=== PATIENT | male | born 1935 | race Two or more races ===

== ENCOUNTER 2024-10-04 03:10 | Inpatient (IN) | payer OTHER ==
[~2024-10-04] VITALS: Ht 172.7 cm; Wt 58.9 kg
[2024-10-04 03:36] LABS: Basophils # (auto) 0.1 10 ^3/uL (0-0.2); Basophils % (auto) 1.2 % (0.0-2.0); Eosinophils # (auto) 0.1 10 ^3/uL (0-0.8); Eosinophils % (auto) 1.1 % (0.0-7.0); Hematocrit 39.5 % (41.0-53.0); Hemoglobin 13.3 g/dL (13.5-17.5); Lymphocytes # (auto) 1.1 10 ^3/uL (0.4-5.4); Lymphocytes % (auto) 17.4 % (10.0-50.0); Mean Corpuscular Hemoglobin 30.9 pg (28.0-32.0); Mean Corpuscular Hgb Conc. 33.6 g/dL (32.0-36.0); Mean Corpuscular Volume 91.7 fL (80.0-100.0); Monocytes # (auto) 0.4 10 ^3/uL (0-1.3); Monocytes % (auto) 6.1 % (0.0-12.0); Neutrophils # (auto) 4.6 10 ^3/uL (1.6-8.6); Neutrophils % (auto) 74.2 % (37.0-80.0); Nucleated Red Blood Cells % 0.1 %; Platelet Count (auto) 201 10^3/uL (140-450); Red Blood Cells 4.31 10^6/uL (4.5-5.90); Red Cell Distribution Width 15.4 % (11.8-14.3); White Blood Cell 6.2 10^3/uL (4.4-10.8)
--- NOTE | 2024-10-04 03:38 | ED.PDOC ---
History of Present Illness HPI Comments 89 y/o M is BIBA from home for c/o generalized weakness and bodyaches. Patient is a poor historian and reports symptoms ongoing for the past several months with no improvement. 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 Denies any current chest pain, shortness of breath, fever, chills, urinary symptoms, or further associated symptoms. Chief Complaint: Body Pain Time Seen by MD: 03:10 Reviewed Notes: Nurses Notes, Research Assoc Notes, Medications, Allergies Allergies: Coded Allergies: NO KNOWN ALLERGIES (Unverified , 10/04/24) Information Source: Patient, Emergency Med Personnel Mode of Arrival: EMS Severity: Moderate Timing: Days Duration: Since onset Prehospital treatment: 12 Lead EKG, Accucheck, Trash Collector Past Medical History PAST MEDICAL HISTORY: Dementia, High Lipids, ND (STEMI), Thyroid (hypothryoidism ) Past Medical History (Other): chronic pain syndrome Surgical History: Denies all surgeries Social History Smoker: Non-Smoker Alcohol: Denies ETOH Use Drugs: Denies Drug Use Lives In: Home All Other Systems: Reviewed and Negative (Comprehensive systems review obtained and negative except for what is stated in the HPI.) Physical Exam General Appearance: No Apparent Distress, Normal HEENT: Normal ENT Inspection, Pharynx Normal, TMs Normal Neck: Full Range of Motion, Non-Tender, Normal, Normal Inspection Respiratory: Chest Non-Tender, Lungs Clear, No Accessory Muscle Use, No Respiratory Distress, Normal Breath Sounds Cardiovascular: No Edema, No JVD, No Murmur, No Gallop, Normal Peripheral Pulses, Regular Rate/Rhythm Breast Exam: Deferred Gastrointestinal: No Organomegaly, Non Tender, No Pulsatile Mass, Normal Bowel Sounds, Soft Genitalia: Deferred Pelvic: Deferred Rectal: Deferred Extremities: No calf tenderness, Normal capillary refill, Normal inspection, Normal range of motion, Non-tender, No pedal edema Musculoskeletal : Apperance: Normal Neurologic: Alert, laboratory technical specialist II-XII nml as Tested, No Motor Deficits, Normal Affect, Normal Mood, No Sensory Deficits Cerebellar Function: Normal Reflexes: Normal Skin: Dry, Normal Color, Warm Lymphatic: No Adenopathy Was a procedure done? Was a procedure done?: No Differential Dx Considerations may include: URI, UTI, viral syndrome, electrolyte imbalance, dehydration, muscle strain, among others X-Ray, Labs, Meds, VS Vital Signs Date Time Temp Pulse Resp B/P (MAP) Pulse Ox O2 Delivery O2 Flow Rate FiO2 10/04/24 03:19 98.7 68 18 110/68 (82) 96 98.7 10/04/24 03:13 58 Lab Test 10/04/24 04:27 10/04/24 03:21 Range/Units Troponin I High Sensitivity Pending 15 </=54 ng/L White Blood Count 6.2 4.4-10.8 10^3/uL Red Blood Count 4.31 L 4.5-5.90 10^6/uL Hemoglobin 13.3 L 13.5-17.5 g/dL Hematocrit 39.5 L 41.0-53.0 % Mean Corpuscular Volume 91.7 80.0-100.0 fL Mean Corpuscular Hemoglobin 30.9 28.0-32.0 pg Mean Corpuscular Hemoglobin Concent 33.6 32.0-36.0 g/dL Red Cell Distribution Width 15.4 H 11.8-14.3 % Platelet Count 201 140-450 10^3/uL Mean Platelet Volume 6.6 L 6.9-10.8 fL Neutrophils (%) (Auto) 74.2 37.0-80.0 % Lymphocytes (%) (Auto) 17.4 10.0-50.0 % Monocytes (%) (Auto) 6.1 0.0-12.0 % Eosinophils (%) (Auto) 1.1 0.0-7.0 % Basophils (%) (Auto) 1.2 0.0-2.0 % Neutrophils # (Auto) 4.6 1.6-8.6 10 ^3/uL Lymphocytes # (Auto) 1.1 0.4-5.4 10 ^3/uL Monocytes # (Auto) 0.4 0-1.3 10 ^3/uL Eosinophils # (Auto) 0.1 0-0.8 10 ^3/uL Basophils # (Auto) 0.1 0-0.2 10 ^3/uL Nucleated Red Blood Cells 0.1 % Sodium Level 139 136-145 mmol/L Potassium Level 3.4 L 3.5-5.1 mmol/L Chloride Level 104 98-107 mmol/L Carbon Dioxide Level 26 20-31 mmol/L Anion Gap 9 5-15 Blood Urea Nitrogen 19 9-23 mg/dL Creatinine 1.00 0.700-1.30 mg/dL Glomerular Filtration Rate Calc 72 >90 mL/min BUN/Creatinine Ratio 19.0 10.0-20.0 Serum Glucose 93 74-106 mg/dL Calcium Level 9.4 8.7-10.4 mg/dL Time of 1ST Reevaluation: 03:40 Reevaluation 1ST: Unchanged Patient Education/Counseling: Diagnosis, Treatment Family Education/Counseling: No Family Present Additional Information Previous visits reviewed: N/A The following tests were ordered, and results were reviewed by me: EKG, Troponin, CXR, CBC, BMP Additional Information was gathered from interviewing the following independent historians: EMS I reviewed and agreed with the following test results read by other providers: CXR I discussed treatment and results with medical personnel and: patient Departure 1 Departure Time of Disposition: 04:49 (Patient with a worsening generalized weakness. Labs and x-ray are benign. We will admit patient for further workup) Impression: Primary Impression: Generalized weakness Additional Impression: Shortness of breath Disposition: ADMITTED INPATIENT Admit to: Med Surg Condition: Serious Critical Care Note Critical Care Time?: No Stability Stability form required: No Heart Score Heart Score: Heart Score Response (Comments) Value History N/A 0 EKG N/A 0 Age N/A 0 Risk Factors N/A 0 Troponin N/A 0 Total 0 I personally scribed for EDSON MICHAEL MD ([email or web address]) on 10/04/24 at 03:38. Electronically submitted by Boston Hardy [email or web address]). EDSON MICHAEL MD October 04, 2024 03:38
[2024-10-04 03:42] LABS: Chloride 104 mmol/L (98-107); Sodium 139 mmol/L (136-145)
[2024-10-04 03:43] LABS: Anion Gap 9 (5-15); Carbon Dioxide 26 mmol/L (20-31)
[2024-10-04 03:44] LABS: Calcium 9.4 mg/dL (8.7-10.4)
[2024-10-04 03:48] LABS: Blood Urea Nitrogen 19 mg/dL (9-23); Glucose 93 mg/dL (74-106)
[2024-10-04 03:55] LABS: Potassium 3.4 mmol/L (3.5-5.1)
--- NOTE | 2024-10-04 04:39 | DVH ---
CHEST RADIOGRAPH Indication: weakness Technique: Single frontal view of the chest was obtained COMPARISON: None FINDINGS: Lines and Tubes: Median sternotomy. Thoracic spinal stimulator device in-situ. Lungs: Increased interstitial prominence Pleura: No effusion. No pneumothorax. Cardiomediastinal contours: Unremarkable Bones: Unremarkable IMPRESSION: Mild pulmonary vascular congestion versus viral pneumonia
[2024-10-04] MEDS ORDERED: DOCUSATE SOD 100 MG CAP PO PRN (07:45)
[2024-10-04] MEDS ORDERED: MORPHINE SULFATE INJ 2 MG/ml SYRG IV PRN (07:45)
[2024-10-04] MEDS ORDERED: HYDROcodone-ACET 5/325MG TAB PO PRN (07:45)
[2024-10-04] MEDS ORDERED: ACETAMINOPHEN 325 MG TAB PO PRN (07:45)
[2024-10-04] MEDS ORDERED: ONDANSETRON HCL 4 MG/2 ML VIAL IV PRN (07:45)
[2024-10-04] MEDS ORDERED: APIX5TAB PO (07:54)
[2024-10-04] MEDS ORDERED: LEVO25TA6 PO (07:54)
[2024-10-04] MEDS ORDERED: DONE5TAB80 PO (07:54)
[2024-10-04] MEDS ORDERED: DULO1CAP5 PO (07:54)
[2024-10-04] MEDS ORDERED: PERCOT PO ×2 (07:54)
[2024-10-04] MEDS ORDERED: OXYCODONE W/ ACETAMINOPHEN 5/325MG TABLET PO PRN (08:00)
--- NOTE | 2024-10-04 08:20 | DVHHP2 ---
History of Present Illness Reason for Visit: Body aches History of Present Illness Calin MembrenoDon is an 89-year-old male with past medical history of hypothyroidism, HI, hyperlipidemia, chronic pain, and dementia, who came to the hospital for body aches. Patient states his symptoms began last night about 2200. Started with chills and then body aches, and has had some shortness of breath. I called and spoke with the patient's niece. She states in the apartment rental clerk hours around [address] to his neighbors house and asked them to call EMS because he wasn't feeling well. The niece states he lives alone. She has been trying to convince him to move in with them or let someone live with him so he can have help and he refuses. She states he did have a female friend who would check in on him, but they are no longer talking. Her brother and her check in on him frequently, but he seems to be requiring more help. She states she is not sure if he has been formally diagnosed with dementia but about 2 months ago he went missing for a couple days. They had to contact the police to help find him. He has not been driving since that episode. Cardiovascular: HI, hyperipidemia Musculoskeletal: Chronic low back pain Endocrine: Hypothyroidism Past Surgical History: CABG, Other (PTCA) Smoke: No ALCOHOL: none Drugs: None Lives: Alone Review of Systems Constitutional: Yes: Chills, Weakness, Malaise, Other (body aches); No: Fever, Sweats Eyes: No: Pain, Vision change, Conjunctivae inflammation, Eyelid inflammation, Other, Redness ENT: No: Ear pain, Ear discharge, Nose pain, Nose discharge, Nose congestion, Mouth pain, Mouth swelling, Throat pain, Throat swelling, Other Respiratory: No: Cough, Dry, Shortness of breath, SOB with excertion, Wheezing, Hemoptysis, Pleuritic Pain, Sputum, Wheezing, Other Cardiovascular: No: Chest Pain, Palpitations, Orthopnea, Paroxysmal Noc. Dyspnea, Edema, Lt Headedness, Other Gastrointestinal: No: Nausea, Vomiting, Abdominal Pain, Diarrhea, Constipation, Melena, Hematochezia, Other Genitourinary: No Dysuria, No Frequency, No Incontinence, No Hematuria, No Retention, No Other Musculoskeletal: No: other, neck pain, shoulder pain, arm pain, back pain, hand pain, leg pain, foot pain Skin: No: Rash, Lesions, Jaundice, Bruising, Other Neurological: No: Weakness, Numbness, Incoordination, Change in speech, Confusion, Seizures, Other Allergies: Coded Allergies: NO KNOWN ALLERGIES (Unverified , 10/04/24) Medications Current Medications Medications Dose Ordered Sig/Aravind Route Start Time Stop Time Status Last Admin Dose Admin Acetaminophen/ Hydrocodone Bitart 1 tab Q4HP PRN PO 10/04/24 07:45 UNV Ondansetron HCl 4 mg Q4HP PRN IV 10/04/24 07:45 UNV Docusate Sodium 100 mg BIDPRN PRN PO 10/04/24 07:45 UNV Acetaminophen 650 mg Q6HP PRN PO 10/04/24 07:45 UNV Morphine Sulfate 2 mg Q4HPRN PRN IV 10/04/24 07:45 UNV Apixaban 5 mg BID PO 10/04/24 10:00 UNV Donepezil HCl 5 mg DAILY PO 10/04/24 10:00 UNV Levothyroxine Sodium 25 mcg DAILY PO 10/04/24 10:00 UNV Oxycodone/ Acetaminophen 1 tab TID PRN PO 10/04/24 08:00 UNV Duloxetine HCl 30 mg DAILY PO 10/04/24 10:00 UNV Exam Vital Signs Vital Signs Date Time Temp Pulse Resp B/P (MAP) Pulse Ox O2 Delivery O2 Flow Rate FiO2 10/04/24 06:01 98.3 68 16 147/75 (99) 97 98.3 General Appearance: Alert, Oriented X3, Cooperative, mild distress HEENT: Atraumatic, PERRLA Cardiovascular: Regular rate, Normal S1, Normal S2 Abdominal: Normal bowel sounds, Soft, No tenderness, No hepatospenomegaly Extremities: No clubbing, No cyanosis, No edema, Normal pulses Skin: No rashes, No breakdown, No significant lesion Neuro: Normal gait, Normal speech, Strength at 5/5 X4 ext, Normal tone Psych/Mental Status: Mental status NL, Mood NL Labs/Xrays Labs Test 10/04/24 06:29 10/04/24 03:21 Range/Units Troponin I High Sensitivity 14 </=54 ng/L White Blood Count 6.2 4.4-10.8 10^3/uL Red Blood Count 4.31 L 4.5-5.90 10^6/uL Hemoglobin 13.3 L 13.5-17.5 g/dL Hematocrit 39.5 L 41.0-53.0 % Mean Corpuscular Volume 91.7 80.0-100.0 fL Mean Corpuscular Hemoglobin 30.9 28.0-32.0 pg Mean Corpuscular Hemoglobin Concent 33.6 32.0-36.0 g/dL Red Cell Distribution Width 15.4 H 11.8-14.3 % Platelet Count 201 140-450 10^3/uL Mean Platelet Volume 6.6 L 6.9-10.8 fL Neutrophils (%) (Auto) 74.2 37.0-80.0 % Lymphocytes (%) (Auto) 17.4 10.0-50.0 % Monocytes (%) (Auto) 6.1 0.0-12.0 % Eosinophils (%) (Auto) 1.1 0.0-7.0 % Basophils (%) (Auto) 1.2 0.0-2.0 % Neutrophils # (Auto) 4.6 1.6-8.6 10 ^3/uL Lymphocytes # (Auto) 1.1 0.4-5.4 10 ^3/uL Monocytes # (Auto) 0.4 0-1.3 10 ^3/uL Eosinophils # (Auto) 0.1 0-0.8 10 ^3/uL Basophils # (Auto) 0.1 0-0.2 10 ^3/uL Nucleated Red Blood Cells 0.1 % Sodium Level 139 136-145 mmol/L Potassium Level 3.4 L 3.5-5.1 mmol/L Chloride Level 104 98-107 mmol/L Carbon Dioxide Level 26 20-31 mmol/L Anion Gap 9 5-15 Blood Urea Nitrogen 19 9-23 mg/dL Creatinine 1.00 0.700-1.30 mg/dL Glomerular Filtration Rate Calc 72 >90 mL/min BUN/Creatinine Ratio 19.0 10.0-20.0 Serum Glucose 93 74-106 mg/dL Calcium Level 9.4 8.7-10.4 mg/dL CHEST RADIOGRAPH FINDINGS: Lines and Tubes: Median sternotomy. Thoracic spinal stimulator device in-situ. Lungs: Increased interstitial prominence Pleura: No effusion. No pneumothorax. Cardiomediastinal contours: Unremarkable Bones: Unremarkable IMPRESSION: Mild pulmonary vascular congestion versus viral pneumonia Assessment/Plan Assessment/Plan Assessment: Generalized weakness, Possible pneumonia, Hyperlipidemia, Hypothyroidism, Plan: Admit to Med-Surg, Social service consult, COVID and influenza A&B swab, Breathing treatments, Supplemental oxygen as needed, Manage/Monitor electrolytes closely, Home medications reconciled, Plan discussed with: Patient My Orders Orders - ELODIA FLORES Procedure Category Date Status Time Admit ADMIT 10/04/24 Transmitted 07:45 Code Status CODE 10/04/24 Transmitted 07:45 2 Gm Sodium Diet DIET 10/04/24 Transmitted Breakfast Hydrocodone-Acet PHA 10/04/24 Logged 5/325mg Tab (Edwards 07:45 Ondansetron Hcl PHA 10/04/24 Logged (Zofran) 07:45 Docusate Sodium PHA 10/04/24 Logged Capsule (Colace 07:45 Complete Blood Count LAB 10/05/24 Verified 04:00 Comprehensive LAB 10/05/24 Verified Metabolic Panel 04:00 Condition: Serious THALIA 10/04/24 In Process 07:45 Acetaminophen Tablet PHA 10/04/24 Logged (Tylenol Tablet) 07:45 Morphine Sulfate PHA 10/04/24 Logged Injection 07:45 Covid19 Antigen Erna LAB 10/04/24 Logged Rapid Influenza A&B LAB 10/04/24 Logged 07:45 Apixaban (Eliquis) PHA 10/04/24 Logged 10:00 Donepezil Tablet PHA 10/04/24 Logged (Aricept Tablet) 10:00 Levothyroxine Tablet PHA 10/04/24 Logged (Synthroid Tablet) 10:00 Oxycodone W/ Acet PHA 10/04/24 Logged 5/325mg Tab (Percocet 08:00 Duloxetine Hcl PHA 10/04/24 Logged Capsule (Cymbalta 10:00 Potassium Effervesent PHA 10/04/24 Logged Tab (Klor-Con/Ef) 08:00 Date of Service: October 04, 2024 Billing Provider: ELODIA FLORES Common Visit Codes: [id number] INP/OBS CARE (MOD) ELODIA FLORES October 04, 2024 08:20
[2024-10-04] MEDS: POTASSIUM EFFERVESENT TAB 25 MEQ PO ONE (09:05)
[2024-10-04] MEDS ORDERED: DONEPEZIL HYDROCHLORIDE 5 MG TAB PO SCH (10:00)
[2024-10-04 10:09] LABS: COVID19 ANTIGEN SOFIA FIA NEGATIVE (NEGATIVE)
[2024-10-04 10:10] LABS: Rapid Influenza A Negative (Negative); Rapid Influenza B Negative (Negative)
[2024-10-04 10:44] LABS: Urine Bacteria None Seen /hpf (None Seen)
[2024-10-04 11:04] LABS: Urine Blood Negative /uL (Negative); Urine Clarity Clear (Clear); Urine Color Yellow (Yellow); Urine Mucus FEW (None Seen); Urine Protein, UAD TRACE (Negative); Urine Specific Gravity 1.025 (1.001-1.035); Urine Squamous Epithelial Cell None Seen /hpf (<5); Urine Urobilinogen Normal (Negative); Urine WBC 1 /HPF (0-3); Urine pH 5.5 (5.0-9.0)
[2024-10-04] MEDS: APIXABAN 5 MG TAB PO SCH (11:20)
[2024-10-04] MEDS: DULoxetine HCL 30 MG CAP PO SCH (11:20)
[2024-10-04] MEDS: LEVOTHYROXINE SODIUM 25 MCG TAB PO SCH (11:21)
--- NOTE | 2024-10-04 14:37 | DVHPN2 ---
Reviewed: Care Plan, H&P, Labs, Medications, Previous Orders, Radiology Changes from previous H/P or p: No Changes Eyes: No Pain, No Vision change, No Conjunctivae inflammation, No Eyelid inflammation, No Other, No Redness ENT: No Ear pain, No Ear discharge, No Nose pain, No Nose discharge, No Nose congestion, No Mouth pain, No Mouth swelling, No Throat pain, No Throat swelling, No Other Cardiovascular: No Chest Pain, No Palpitations, No Orthopnea, No Paroxysmal Noc. Dyspnea, No Edema, No Lt Headedness, No Other Respiratory: No Cough, No Dry, No Shortness of breath, No SOB with excertion, No Wheezing, No Hemoptysis, No Pleuritic Pain, No Sputum, No Other Gastrointestinal: No Nausea, No Vomiting, No Abdominal Pain, No Diarrhea, No Constipation, No Melena, No Hematochezia, No Other Genitourinary: No Dysuria, No Frequency, No Incontinence, No Hematuria, No Retention, No Other Musculoskeletal: No other, No neck pain, No shoulder pain, No arm pain, No back pain, No hand pain, No leg pain, No foot pain Skin: No Rash, No Lesions, No Jaundice, No Bruising, No Other Objective Vitals Vital Signs Date Time Temp Pulse Resp B/P (MAP) Pulse Ox O2 Delivery O2 Flow Rate FiO2 10/04/24 13:00 64 14 146/70 (95) 98 10/04/24 08:00 97.7 97.7 10/04/24 07:30 Room Air* 0 21 Medications Current Medications Medications Dose Ordered Sig/Aravind Route Start Time Stop Time Status Last Admin Dose Admin Acetaminophen/ Hydrocodone Bitart 1 tab Q4HP PRN PO 10/04/24 07:45 Ondansetron HCl 4 mg Q4HP PRN IV 10/04/24 07:45 Docusate Sodium 100 mg BIDPRN PRN PO 10/04/24 07:45 Acetaminophen 650 mg Q6HP PRN PO 10/04/24 07:45 Morphine Sulfate 2 mg Q4HPRN PRN IV 10/04/24 07:45 Apixaban 5 mg BID PO 10/04/24 10:00 10/04/24 11:20 5 MG Levothyroxine Sodium 25 mcg DAILY PO 10/04/24 10:00 10/04/24 11:21 25 MCG Oxycodone/ Acetaminophen 1 tab TID PRN PO 10/04/24 08:00 Hold Duloxetine HCl 30 mg DAILY PO 10/04/24 10:00 10/04/24 11:20 30 MG Donepezil HCl 5 mg DAILY@2200 PO 10/04/24 22:00 Ipratropium [place] 0.5 mg Q6HWA NEB 10/04/24 18:00 UNV Albuterol 2.5 mg Q6HWA NEB 10/04/24 18:00 UNV Laboratory Results Laboratory Tests 10/04/24 03:21 Chemistry Test 10/04/24 03:21 Calcium Level 9.4 mg/dL (8.7-10.4) Urinalysis Test 10/04/24 03:14 Urine Color Yellow (Yellow) Urine Clarity Clear (Clear) Urine pH 5.5 (5.0-9.0) Urine Specific [place] 1.025 (1.001-1.035) Urine Protein Trace (Negative) H Urine Ketones 1+ (Negative) H Urine Blood Negative /uL (Negative) Urine Nitrite Negative (Negative) Urine Bilirubin Negative (Negative) Urine Urobilinogen Normal mg/dL (Negative) Urine Leukocyte Esterase Negative /uL (Negative) Urine RBC <1 /hpf (0 - 3) Urine Microscopic WBC 1 /HPF (0-3) Urine Squamous Epithelial Cells None seen /hpf (<5) Urine Bacteria None seen /hpf (None Seen) Urine Mucus Few (None Seen) Urine Glucose Normal mg/dL (Normal) Labs and/or images reviewed: Labs reviewed by me, Image(s) reviewed by me Assessment/Plan Assessment/Plan Sepsis secondary to pneumonia: Rocephin azithromycin History of MS status post CABG and stents Hypercholesterolemia Hypothyroidism Chronic low back pain Dementia Patient lives alone Flu test negative COVID test negative Failure to thrive Patient is hospice revoked Time spent 65 minutes Advanced care planning time 20 minutes Plan discussed with: Patient My Orders Orders - JIMMY PINA MD Procedure Category Date Status Time Ceftriaxone Ivpb PHA 10/05/24 Verified Rocephin 09:00 Ceftriaxone Ivpb PHA 10/04/24 Verified Rocephin 14:45 Azithromycin 500mg/ PHA 10/04/24 Verified 250ml (Zithromax 50 14:45 Azithromycin 500mg/ PHA 10/05/24 Verified 250ml (Zithromax 50 10:00 Date of Service: October 04, 2024 Billing Provider: JIMMY PINA MD Common Visit Codes: [id number] CARE 30-74 MIN JIMMY PINA MD October 04, 2024 14:37
[2024-10-04 17:01] LABS: Potassium 3.4 mmol/L (3.5-5.1)
[2024-10-04 17:07] LABS: Magnesium 2.1 mg/dL (1.6-2.6)
[2024-10-04] MEDS: cefTRIAXone 1GM/50ML D5W 50 ML IV ONE (18:02)
[2024-10-04] MEDS: AZITHROMYCIN 500MG/ 250ML 250 ML IV ONE (18:38)
[2024-10-04 18:45] VITALS: PULSE 75; RESP 16; O2SAT 94
[2024-10-04] MEDS: ALBUTEROL SULF 2.5 MG/0.5ML(0.5%) NEB SOLN NEB SCH (18:45)
[2024-10-04] MEDS: IPRATROPIUM BROM 0.5 MG/2.5ML INH SOL NEB SCH (18:46)
[2024-10-04 18:53] VITALS: PULSE 71; RESP 16; O2SAT 99
[2024-10-04 20:00] VITALS: PULSE 75; RESP 18; O2SAT 96
[2024-10-04 20:29] VITALS: BP 148/90; PULSE 71; RESP 16; TEMP 98.3; O2SAT 96
[2024-10-04] MEDS: DONEPEZIL HYDROCHLORIDE 5 MG TAB PO SCH (21:56)
[2024-10-04 23:58] VITALS: BP 135/82; PULSE 65; RESP 20; TEMP 99.1; O2SAT 97
[2024-10-05] VITALS (16 sets, daily range): BP systolic 107–161; BP diastolic 60–95; PULSE 56–115; RESP 14–20; TEMP 98–99.1; O2SAT 94–100
[2024-10-05 06:12] LABS: Basophils # (auto) 0 10 ^3/uL (0-0.2); Basophils % (auto) 0.4 % (0.0-2.0); Eosinophils # (auto) 0.2 10 ^3/uL (0-0.8); Eosinophils % (auto) 2.4 % (0.0-7.0); Hematocrit 40.7 % (41.0-53.0); Hemoglobin 14.1 g/dL (13.5-17.5); Lymphocytes # (auto) 1.4 10 ^3/uL (0.4-5.4); Lymphocytes % (auto) 19.9 % (10.0-50.0); Mean Corpuscular Hemoglobin 31.9 pg (28.0-32.0); Mean Corpuscular Hgb Conc. 34.6 g/dL (32.0-36.0); Mean Corpuscular Volume 92.2 fL (80.0-100.0); Monocytes # (auto) 0.5 10 ^3/uL (0-1.3); Monocytes % (auto) 7.1 % (0.0-12.0); Neutrophils # (auto) 4.8 10 ^3/uL (1.6-8.6); Neutrophils % (auto) 70.2 % (37.0-80.0); Platelet Count (auto) 200 10^3/uL (140-450); Red Blood Cells 4.42 10^6/uL (4.5-5.90); Red Cell Distribution Width 15.4 % (11.8-14.3); White Blood Cell 6.9 10^3/uL (4.4-10.8)
[2024-10-05 06:35] LABS: Albumin 3.9 g/dL (3.2-4.8); Anion Gap 10 (5-15); Aspartate Aminotransferase 21 U/L (13-40); BUN/Creatinine Ratio 15.6 (10.0-20.0); Blood Urea Nitrogen 15 mg/dL (9-23); Calcium 9.2 mg/dL (8.7-10.4); Carbon Dioxide 28 mmol/L (20-31); Chloride 103 mmol/L (98-107); Glucose 94 mg/dL (74-106); Sodium 141 mmol/L (136-145); Total Protein 6.4 g/dL (5.7-8.2)
[2024-10-05 06:36] LABS: Alkaline Phosphatase 41 U/L (46-116); Bilirubin, Total 0.6 mg/dL (0.2-1.0); Potassium 3.3 mmol/L (3.5-5.1)
[2024-10-05 06:37] LABS: Alanine Aminotransferase < 9 U/L (7-40)
--- NOTE | 2024-10-05 10:42 | DVHPN2 ---
Reviewed: Care Plan, H&P, Labs, Medications, Previous Orders, Radiology Changes from previous H/P or p: No Changes Eyes: No Pain, No Vision change, No Conjunctivae inflammation, No Eyelid inflammation, No Other, No Redness ENT: No Ear pain, No Ear discharge, No Nose pain, No Nose discharge, No Nose congestion, No Mouth pain, No Mouth swelling, No Throat pain, No Throat swelling, No Other Cardiovascular: No Chest Pain, No Palpitations, No Orthopnea, No Paroxysmal Noc. Dyspnea, No Edema, No Lt Headedness, No Other Respiratory: No Cough, No Dry, No Shortness of breath, No SOB with excertion, No Wheezing, No Hemoptysis, No Pleuritic Pain, No Sputum, No Other Gastrointestinal: No Nausea, No Vomiting, No Abdominal Pain, No Diarrhea, No Constipation, No Melena, No Hematochezia, No Other Genitourinary: No Dysuria, No Frequency, No Incontinence, No Hematuria, No Retention, No Other Musculoskeletal: No other, No neck pain, No shoulder pain, No arm pain, No back pain, No hand pain, No leg pain, No foot pain Skin: No Rash, No Lesions, No Jaundice, No Bruising, No Other Objective Vitals Vital Signs Date Time Temp Pulse Resp B/P (MAP) Pulse Ox O2 Delivery O2 Flow Rate FiO2 10/05/24 06:08 95 Room Air* 0 21 10/05/24 06:08 56 16 10/05/24 05:00 98.2 161/90 (113) 98.2 Intake/Output Intake and Output 10/05/24 07:00 Intake Total 350 ml Output Total 1 ml Balance 349 ml Intake Oral 100 ml IV Total 250 ml Output Stool Total 1 ml # Voids 3 Medications Current Medications Medications Dose Ordered Sig/Aravind Route Start Time Stop Time Status Last Admin Dose Admin Acetaminophen/ Hydrocodone Bitart 1 tab Q4HP PRN PO 10/04/24 07:45 Ondansetron HCl 4 mg Q4HP PRN IV 10/04/24 07:45 Docusate Sodium 100 mg BIDPRN PRN PO 10/04/24 07:45 Acetaminophen 650 mg Q6HP PRN PO 10/04/24 07:45 Morphine Sulfate 2 mg Q4HPRN PRN IV 10/04/24 07:45 Apixaban 5 mg BID PO 10/04/24 10:00 10/05/24 10:05 5 MG Levothyroxine Sodium 25 mcg DAILY PO 10/04/24 10:00 10/05/24 10:05 25 MCG Oxycodone/ Acetaminophen 1 tab TID PRN PO 10/04/24 08:00 Hold Duloxetine HCl 30 mg DAILY PO 10/04/24 10:00 10/05/24 10:05 30 MG Donepezil HCl 5 mg DAILY@2200 PO 10/04/24 22:00 10/04/24 21:56 5 MG Ipratropium [place] 0.5 mg Q6HWA [place] 10/04/24 18:00 10/05/24 06:08 0.5 MG Albuterol 2.5 mg Q6HWA [place] 10/04/24 18:00 10/05/24 06:08 2.5 MG Ceftriaxone Sodium 50 ml @ 100 mls/hr DAILY@09 IV 10/05/24 09:00 Azithromycin 250 ml @ 125 mls/hr DAILY IV 10/05/24 10:00 Laboratory Results Laboratory Tests 10/05/24 05:51 Chemistry Test 10/04/24 16:45 10/05/24 05:51 Magnesium Level 2.1 mg/dL (1.6-2.6) Albumin 3.9 g/dL (3.2-4.8) Calcium Level 9.2 mg/dL (8.7-10.4) Total Protein 6.4 g/dL (5.7-8.2) LFT Test 10/05/24 05:51 Alanine Aminotransferase (ALT) < 9 U/L (7-40) Alkaline Phosphatase 41 U/L (46-116) L Aspartate Amino Transferase (AST) 21 U/L (13-40) Total Bilirubin 0.6 mg/dL (0.2-1.0) Urinalysis Test 10/04/24 03:14 Urine Color Yellow (Yellow) Urine Clarity Clear (Clear) Urine pH 5.5 (5.0-9.0) Urine Specific [place] 1.025 (1.001-1.035) Urine Protein Trace (Negative) H Urine Ketones 1+ (Negative) H Urine Blood Negative /uL (Negative) Urine Nitrite Negative (Negative) Urine Bilirubin Negative (Negative) Urine Urobilinogen Normal mg/dL (Negative) Urine Leukocyte Esterase Negative /uL (Negative) Urine RBC <1 /hpf (0 - 3) Urine Microscopic WBC 1 /HPF (0-3) Urine Squamous Epithelial Cells None seen /hpf (<5) Urine Bacteria None seen /hpf (None Seen) Urine Mucus Few (None Seen) Urine Glucose Normal mg/dL (Normal) Labs and/or images reviewed: Labs reviewed by me, Image(s) reviewed by me Assessment/Plan Assessment/Plan Sepsis secondary to pneumonia: Rocephin azithromycin History of NM status post CABG and stents Hypercholesterolemia Hypothyroidism Chronic low back pain Dementia Patient lives alone Flu test negative COVID test negative Failure to thrive Patient lives alone Patient is hospice revoked Patient says he was never on hospice Time spent 65 minutes Advanced care planning time 20 minutes Patient is insisting to be discharged home today Requested RN to call his niece Kassie and advise her that the patient insisting to be discharged home. Plan discussed with: Patient My Orders Orders - JIMMY PINA MD Procedure Category Date Status Time Ceftriaxone 1gm/50ml PHA 10/05/24 In Process D5w (Rocephin) 09:00 Azithromycin 500mg/ PHA 10/05/24 In Process 250ml (Zithromax 50 10:00 Date of Service: October 05, 2024 Billing Provider: JIMMY PINA MD Common Visit Codes: [id number] INP/OBS CARE(HIGH) JIMMY PINA MD October 05, 2024 10:42
[2024-10-05] MEDS: cefTRIAXone 1GM/50ML D5W 50 ML IV SCH (11:28)
[2024-10-05] MEDS: AZITHROMYCIN 500MG/ 250ML 250 ML IV SCH (12:28)
[2024-10-06] VITALS (15 sets, daily range): BP systolic 116–170; BP diastolic 63–81; PULSE 63–79; RESP 16–19; TEMP 97–98.8; O2SAT 93–100
--- NOTE | 2024-10-06 09:47 | DVHPN2 ---
Reviewed: Care Plan, H&P, Labs, Medications, Previous Orders, Radiology Changes from previous H/P or p: No Changes Eyes: No Pain, No Vision change, No Conjunctivae inflammation, No Eyelid inflammation, No Other, No Redness ENT: No Ear pain, No Ear discharge, No Nose pain, No Nose discharge, No Nose congestion, No Mouth pain, No Mouth swelling, No Throat pain, No Throat swelling, No Other Cardiovascular: No Chest Pain, No Palpitations, No Orthopnea, No Paroxysmal Noc. Dyspnea, No Edema, No Lt Headedness, No Other Respiratory: No Cough, No Dry, No Shortness of breath, No SOB with excertion, No Wheezing, No Hemoptysis, No Pleuritic Pain, No Sputum, No Other Gastrointestinal: No Nausea, No Vomiting, No Abdominal Pain, No Diarrhea, No Constipation, No Melena, No Hematochezia, No Other Genitourinary: No Dysuria, No Frequency, No Incontinence, No Hematuria, No Retention, No Other Musculoskeletal: No other, No neck pain, No shoulder pain, No arm pain, No back pain, No hand pain, No leg pain, No foot pain Skin: No Rash, No Lesions, No Jaundice, No Bruising, No Other Objective Vitals Vital Signs Date Time Temp Pulse Resp B/P (MAP) Pulse Ox O2 Delivery O2 Flow Rate FiO2 10/06/24 07:24 72 18 100 10/06/24 07:18 Room Air 0.0 10/06/24 07:18 21 10/06/24 05:00 98.2 143/70 (94) 98.2 Intake/Output Intake and Output 10/06/24 07:00 Intake Total 1250 ml Balance 1250 ml Intake Oral 950 ml IV Total 300 ml # Voids 3 # Bowel Movements 2 Medications Current Medications Medications Dose Ordered Sig/Aravind Route Start Time Stop Time Status Last Admin Dose Admin Acetaminophen/ Hydrocodone Bitart 1 tab Q4HP PRN PO 10/04/24 07:45 Ondansetron HCl 4 mg Q4HP PRN IV 10/04/24 07:45 Docusate Sodium 100 mg BIDPRN PRN PO 10/04/24 07:45 Acetaminophen 650 mg Q6HP PRN PO 10/04/24 07:45 Morphine Sulfate 2 mg Q4HPRN PRN IV 10/04/24 07:45 Apixaban 5 mg BID PO 10/04/24 10:00 10/06/24 09:02 5 MG Levothyroxine Sodium 25 mcg DAILY PO 10/04/24 10:00 10/06/24 09:02 25 MCG Oxycodone/ Acetaminophen 1 tab TID PRN PO 10/04/24 08:00 Hold Duloxetine HCl 30 mg DAILY PO 10/04/24 10:00 10/06/24 09:02 30 MG Donepezil HCl 5 mg DAILY@2200 PO 10/04/24 22:00 10/05/24 21:33 5 MG Ipratropium [place] 0.5 mg Q6HWA NEB 10/04/24 18:00 10/06/24 07:18 0.5 MG Albuterol 2.5 mg Q6HWA NEB 10/04/24 18:00 10/06/24 07:18 2.5 MG Ceftriaxone Sodium 50 ml @ 100 mls/hr DAILY@09 IV 10/05/24 09:00 10/06/24 09:02 100 MLS/HR Azithromycin 250 ml @ 125 mls/hr DAILY IV 10/05/24 10:00 10/05/24 12:28 125 MLS/HR Laboratory Results Laboratory Tests 10/05/24 05:51 Urinalysis Test 10/04/24 03:14 Urine Color Yellow (Yellow) Urine Clarity Clear (Clear) Urine pH 5.5 (5.0-9.0) Urine Specific [place] 1.025 (1.001-1.035) Urine Protein Trace (Negative) H Urine Ketones 1+ (Negative) H Urine Blood Negative /uL (Negative) Urine Nitrite Negative (Negative) Urine Bilirubin Negative (Negative) Urine Urobilinogen Normal mg/dL (Negative) Urine Leukocyte Esterase Negative /uL (Negative) Urine RBC <1 /hpf (0 - 3) Urine Microscopic WBC 1 /HPF (0-3) Urine Squamous Epithelial Cells None seen /hpf (<5) Urine Bacteria None seen /hpf (None Seen) Urine Mucus Few (None Seen) Urine Glucose Normal mg/dL (Normal) Labs and/or images reviewed: Labs reviewed by me, Image(s) reviewed by me Assessment/Plan Assessment/Plan Sepsis secondary to pneumonia: Rocephin azithromycin 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 Spoke with the patient's niece Kassie [phone] on the phone and she advised he recently wandered away from home for two days and got back with the help of the police; . Tele psych consult placed. Plan discussed with: Patient Date of Service: October 06, 2024 Billing Provider: JIMMY PINA MD Common Visit Codes: [id number] INP/OBS CARE(HIGH) JIMMY PINA MD October 06, 2024 09:47
--- NOTE | 2024-10-06 09:47 | ECG ---
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
--- NOTE | 2024-10-06 17:06 | DVHINCON2 ---
Date of Service if different f: October 06, 2024 Consultation (COTUIT) Labs Laboratory Tests Test 10/04/24 00:00 10/04/24 03:14 10/04/24 06:29 10/04/24 07:45 SARS-CoV-2 Antigen (Rapid) Negative (NEGATIVE) Urine Color Yellow (Yellow) Urine Clarity Clear (Clear) Urine pH 5.5 (5.0-9.0) Urine Specific [place] 1.025 (1.001-1.035) Urine Protein Trace (Negative) Urine Ketones 1+ (Negative) Urine Blood Negative /uL (Negative) Urine Nitrite Negative (Negative) Urine Bilirubin Negative (Negative) Urine Urobilinogen Normal mg/dL (Negative) Urine Leukocyte Esterase Negative /uL (Negative) Urine RBC <1 /hpf (0 - 3) Urine Microscopic WBC 1 /HPF (0-3) Urine Squamous Epithelial Cells None seen /hpf (<5) Urine Bacteria None seen /hpf (None Seen) Urine Mucus Few (None Seen) Urine Glucose Normal mg/dL (Normal) Troponin I High Sensitivity 14 ng/L (</=54) Influenza Type A Antigen Negative (Negative) Influenza Type B Antigen Negative (Negative) Test 10/04/24 16:45 10/05/24 05:51 Magnesium Level 2.1 mg/dL (1.6-2.6) White Blood Count 6.9 10^3/uL (4.4-10.8) Red Blood Count 4.42 10^6/uL (4.5-5.90) Hemoglobin 14.1 g/dL (13.5-17.5) Hematocrit 40.7 % (41.0-53.0) Mean Corpuscular Volume 92.2 fL (80.0-100.0) Mean Corpuscular Hemoglobin 31.9 pg (28.0-32.0) Mean Corpuscular Hemoglobin Concent 34.6 g/dL (32.0-36.0) Red Cell Distribution Width 15.4 % (11.8-14.3) Platelet Count 200 10^3/uL (140-450) Mean Platelet Volume 6.7 fL (6.9-10.8) Neutrophils (%) (Auto) 70.2 % (37.0-80.0) Lymphocytes (%) (Auto) 19.9 % (10.0-50.0) Monocytes (%) (Auto) 7.1 % (0.0-12.0) Eosinophils (%) (Auto) 2.4 % (0.0-7.0) Basophils (%) (Auto) 0.4 % (0.0-2.0) Neutrophils # (Auto) 4.8 10 ^3/uL (1.6-8.6) Lymphocytes # (Auto) 1.4 10 ^3/uL (0.4-5.4) Monocytes # (Auto) 0.5 10 ^3/uL (0-1.3) Eosinophils # (Auto) 0.2 10 ^3/uL (0-0.8) Basophils # (Auto) 0 10 ^3/uL (0-0.2) Nucleated Red Blood Cells 0.0 % Sodium Level 141 mmol/L (136-145) Potassium Level 3.3 mmol/L (3.5-5.1) Chloride Level 103 mmol/L (98-107) Carbon Dioxide Level 28 mmol/L (20-31) Anion Gap 10 (5-15) Blood Urea Nitrogen 15 mg/dL (9-23) Creatinine 0.96 mg/dL (0.700-1.30) Glomerular Filtration Rate Calc 76 mL/min (>90) BUN/Creatinine Ratio 15.6 (10.0-20.0) Serum Glucose 94 mg/dL (74-106) Calcium Level 9.2 mg/dL (8.7-10.4) Total Bilirubin 0.6 mg/dL (0.2-1.0) Aspartate Amino Transf (AST/SGOT) 21 U/L (13-40) Alanine Aminotransferase (ALT/SGPT) < 9 U/L (7-40) Alkaline Phosphatase 41 U/L (46-116) Total Protein 6.4 g/dL (5.7-8.2) Albumin 3.9 g/dL (3.2-4.8) Appetite: Good Appearance: Stated age, Clean Behavioral: Cooperative Eye contact: Appropriate Affect: Appropriate Mood: Other Thought processes: Linear/Goal-directed Thought content: WNL Suicidal ideations: Absent Homicidal ideations: Absent Orientation: Person, Place, Time, Situation Memory intact: Recent Intellect: Average Abstractability: WNL Concentration: Adequate Attention: Adequate Judgement: WNL Insight: Fair Vitals Vital Signs Date Time Temp Pulse Resp B/P (MAP) Pulse Ox O2 Delivery O2 Flow Rate FiO2 10/06/24 13:00 97.3 63 16 136/78 (97) 93 97.3 10/06/24 10:00 Room Air* 0 21 Current medications Current Medications Medications Dose Ordered Sig/Aravind Route Start Time Stop Time Status Last Admin Dose Admin Acetaminophen/ Hydrocodone Bitart 1 tab Q4HP PRN PO 10/04/24 07:45 Ondansetron HCl 4 mg Q4HP PRN IV 10/04/24 07:45 Docusate Sodium 100 mg BIDPRN PRN PO 10/04/24 07:45 Acetaminophen 650 mg Q6HP PRN PO 10/04/24 07:45 Morphine Sulfate 2 mg Q4HPRN PRN IV 10/04/24 07:45 Apixaban 5 mg BID PO 10/04/24 10:00 10/06/24 09:02 5 MG Levothyroxine Sodium 25 mcg DAILY PO 10/04/24 10:00 10/06/24 09:02 25 MCG Oxycodone/ Acetaminophen 1 tab TID PRN PO 10/04/24 08:00 Hold Duloxetine HCl 30 mg DAILY PO 10/04/24 10:00 10/06/24 09:02 30 MG Donepezil HCl 5 mg DAILY@2200 PO 10/04/24 22:00 10/05/24 21:33 5 MG Ipratropium [place] 0.5 mg Q6HWA NEB 10/04/24 18:00 10/06/24 11:33 0.5 MG Albuterol 2.5 mg Q6HWA NEB 10/04/24 18:00 10/06/24 11:33 2.5 MG Ceftriaxone Sodium 50 ml @ 100 mls/hr DAILY@09 IV 10/05/24 09:00 10/06/24 09:02 100 MLS/HR Azithromycin 250 ml @ 125 mls/hr DAILY IV 10/05/24 10:00 10/06/24 11:28 125 MLS/HR Medication adjusted: No Diagnosis: delirium r/o dementia unspecified mood disorder Plan : Pt denies Si/Hi May discharge home after clearance or nursing facility. he does not meet criteria for hold Continue current psychotropic medications Recommend to follow up with neurologist History of Present Illness Reason for Consult : This is a 89-year-old male no known prior psychiatric diagnoses, presents here for generalized weakness HPI : Patient is evaluated via telepsychiatry platform. Patient is pleasant and interactive. He denies prior dementia diagnosis but does reports since jun of this year, having poor memory and getting lost in familiar places as he has lived here for over 15 years. He is also able to report reason for hospitalization, feeling weak and pain in his legs. He reports feeling a little better and looking forward to returning home. He reports recently having low mood due to his condition. he was living with a good friend and this ended about 6 months ago. He maintains that he has good support. he has a sister and niece that are close by. he also reports neighbor is a good friend. he wishes to return to his home after discharge here. He sometimes has low mood but reports being 89years and have lived a great life and he understands somethings come with age. He feels that things will work out, he is hopeful. He denies thoughts of not wanting to live. He denies suicidal/homicidal ideation. He denies auditory/visual hallucinations or paranoid thoughts. He reports sleep is usually ok. His reports appetite is good when feeling like himself. He later puts on hat on his bed of [facility]. He report being from [place] and hoping they return to [facility] this year. Past Psychiatric History : He denies prior diagnoses, psych admissions or holds. He denies prior suicide attempt. he denies current outpatient mental health connections. he is receiving Donepezil 5mg and Cymbalta 30mg daily started here on 10/04/24. Past Medical History : Per chart review, chronic pain, Nstemi, Social History : He lives alone. he denies being . he has adult children living out of state. He denies drugs or alcohol use. He denies any known family history. ANA DALLAS DNP October 06, 2024 17:06
[2024-10-07] VITALS (12 sets, daily range): BP systolic 113–158; BP diastolic 59–82; PULSE 58–87; RESP 16–19; TEMP 95.9–100; O2SAT 93–100
--- NOTE | 2024-10-07 08:20 | DVHPN2 ---
Reviewed: Care Plan, H&P, Labs, Medications, Previous Orders, Radiology Changes from previous H/P or p: No Changes Eyes: No Pain, No Vision change, No Conjunctivae inflammation, No Eyelid inflammation, No Other, No Redness ENT: No Ear pain, No Ear discharge, No Nose pain, No Nose discharge, No Nose congestion, No Mouth pain, No Mouth swelling, No Throat pain, No Throat swelling, No Other Cardiovascular: No Chest Pain, No Palpitations, No Orthopnea, No Paroxysmal Noc. Dyspnea, No Edema, No Lt Headedness, No Other Respiratory: No Cough, No Dry, No Shortness of breath, No SOB with excertion, No Wheezing, No Hemoptysis, No Pleuritic Pain, No Sputum, No Other Gastrointestinal: No Nausea, No Vomiting, No Abdominal Pain, No Diarrhea, No Constipation, No Melena, No Hematochezia, No Other Genitourinary: No Dysuria, No Frequency, No Incontinence, No Hematuria, No Retention, No Other Musculoskeletal: No other, No neck pain, No shoulder pain, No arm pain, No back pain, No hand pain, No leg pain, No foot pain Skin: No Rash, No Lesions, No Jaundice, No Bruising, No Other Objective Vitals Vital Signs Date Time Temp Pulse Resp B/P (MAP) Pulse Ox O2 Delivery O2 Flow Rate FiO2 10/07/24 06:55 58 16 100 10/07/24 06:49 Room Air* 0 21 10/07/24 05:03 96.5 121/74 (90) 96.5 Intake/Output Intake and Output 10/07/24 07:00 Intake Total 300 ml Output Total 0 ml Balance 300 ml Intake Oral 0 ml IV Total 300 ml Output Urine Total 0 ml Medications Current Medications Medications Dose Ordered Sig/Aravind Route Start Time Stop Time Status Last Admin Dose Admin Acetaminophen/ Hydrocodone Bitart 1 tab Q4HP PRN PO 10/04/24 07:45 Ondansetron HCl 4 mg Q4HP PRN IV 10/04/24 07:45 Docusate Sodium 100 mg BIDPRN PRN PO 10/04/24 07:45 Acetaminophen 650 mg Q6HP PRN PO 10/04/24 07:45 Morphine Sulfate 2 mg Q4HPRN PRN IV 10/04/24 07:45 Apixaban 5 mg BID PO 10/04/24 10:00 10/06/24 22:33 5 MG Levothyroxine Sodium 25 mcg DAILY PO 10/04/24 10:00 10/06/24 09:02 25 MCG Oxycodone/ Acetaminophen 1 tab TID PRN PO 10/04/24 08:00 Hold Duloxetine HCl 30 mg DAILY PO 10/04/24 10:00 10/06/24 09:02 30 MG Donepezil HCl 5 mg DAILY@2200 PO 10/04/24 22:00 10/06/24 22:37 5 MG Ipratropium [place] 0.5 mg Q6HWA [facility] 10/04/24 18:00 10/07/24 06:49 0.5 MG Albuterol 2.5 mg Q6HWA [facility] 10/04/24 18:00 10/07/24 06:49 2.5 MG Ceftriaxone Sodium 50 ml @ 100 mls/hr DAILY@09 IV 10/05/24 09:00 10/06/24 09:02 100 MLS/HR Azithromycin 250 ml @ 125 mls/hr DAILY IV 10/05/24 10:00 10/06/24 11:28 125 MLS/HR Laboratory Results Laboratory Tests 10/05/24 05:51 Urinalysis Test 10/04/24 03:14 Urine Color Yellow (Yellow) Urine Clarity Clear (Clear) Urine pH 5.5 (5.0-9.0) Urine Specific [place] 1.025 (1.001-1.035) Urine Protein Trace (Negative) H Urine Ketones 1+ (Negative) H Urine Blood Negative /uL (Negative) Urine Nitrite Negative (Negative) Urine Bilirubin Negative (Negative) Urine Urobilinogen Normal mg/dL (Negative) Urine Leukocyte Esterase Negative /uL (Negative) Urine RBC <1 /hpf (0 - 3) Urine Microscopic WBC 1 /HPF (0-3) Urine Squamous Epithelial Cells None seen /hpf (<5) Urine Bacteria None seen /hpf (None Seen) Urine Mucus Few (None Seen) Urine Glucose Normal mg/dL (Normal) Labs and/or images reviewed: Labs reviewed by me, Image(s) reviewed by me Assessment/Plan Assessment/Plan Sepsis secondary to pneumonia: Rocephin azithromycin History of [place]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 Spoke with the patient's niece Kassie [phone] on the phone and she advised he recently wandered away from home for two days and got back with the help of the police; . Tele psych consult nurse practitioner Flora Zengjf harris, no [id number], felt the patient has dementia and advised to continue psychotropic meds and follow up with neurologist Plan discussed with: Patient My Orders Orders - JIMMY PINA MD Procedure Category Date Status Time *Tele Psych Consult CONS 10/06/24 Transmitted 09:47 Date of Service: October 07, 2024 Billing Provider: JIMMY PINA MD Common Visit Codes: [id number] INP/OBS CARE(HIGH) JIMMY PINA MD October 07, 2024 08:20
[2024-10-07] MEDS: DONEPEZIL HYDROCHLORIDE 5 MG TAB PO SCH (10:45)
[2024-10-07] MEDS: oxyCODONE ER 10 MG TAB PO SCH (10:46)
--- NOTE | 2024-10-07 12:37 | DVHDS2 ---
Discharge Summary Date of Admission October 04, 2024 at 07:45 Date of Discharge: October 07, 2024 Admitting Diagnosis Shortness of breath Wounds: None Labs/Diagnostic Data: Laboratory Results Test 10/05/24 05:51 10/04/24 16:45 10/04/24 07:45 10/04/24 06:29 White Blood Count 6.9 10^3/uL (4.4-10.8) Red Blood Count 4.42 10^6/uL (4.5-5.90) Hemoglobin 14.1 g/dL (13.5-17.5) Hematocrit 40.7 % (41.0-53.0) Mean Corpuscular Volume 92.2 fL (80.0-100.0) Mean Corpuscular Hemoglobin 31.9 pg (28.0-32.0) Mean Corpuscular Hemoglobin Concent 34.6 g/dL (32.0-36.0) Red Cell Distribution Width 15.4 % (11.8-14.3) Platelet Count 200 10^3/uL (140-450) Mean Platelet Volume 6.7 fL (6.9-10.8) Neutrophils (%) (Auto) 70.2 % (37.0-80.0) Lymphocytes (%) (Auto) 19.9 % (10.0-50.0) Monocytes (%) (Auto) 7.1 % (0.0-12.0) Eosinophils (%) (Auto) 2.4 % (0.0-7.0) Basophils (%) (Auto) 0.4 % (0.0-2.0) Neutrophils # (Auto) 4.8 10 ^3/uL (1.6-8.6) Lymphocytes # (Auto) 1.4 10 ^3/uL (0.4-5.4) Monocytes # (Auto) 0.5 10 ^3/uL (0-1.3) Eosinophils # (Auto) 0.2 10 ^3/uL (0-0.8) Basophils # (Auto) 0 10 ^3/uL (0-0.2) Nucleated Red Blood Cells 0.0 % Sodium Level 141 mmol/L (136-145) Potassium Level 3.3 mmol/L (3.5-5.1) Chloride Level 103 mmol/L (98-107) Carbon Dioxide Level 28 mmol/L (20-31) Anion Gap 10 (5-15) Blood Urea Nitrogen 15 mg/dL (9-23) Creatinine 0.96 mg/dL (0.700-1.30) Glomerular Filtration Rate Calc 76 mL/min (>90) BUN/Creatinine Ratio 15.6 (10.0-20.0) Serum Glucose 94 mg/dL (74-106) Calcium Level 9.2 mg/dL (8.7-10.4) Total Bilirubin 0.6 mg/dL (0.2-1.0) Aspartate Amino Transferase (AST) 21 U/L (13-40) Alanine Aminotransferase (ALT) < 9 U/L (7-40) Alkaline Phosphatase 41 U/L (46-116) Total Protein 6.4 g/dL (5.7-8.2) Albumin 3.9 g/dL (3.2-4.8) Magnesium Level 2.1 mg/dL (1.6-2.6) Influenza Type A Antigen Negative (Negative) Influenza Type B Antigen Negative (Negative) Troponin I High Sensitivity 14 ng/L (</=54) Test 10/04/24 03:14 10/04/24 00:00 Urine Color Yellow (Yellow) Urine Clarity Clear (Clear) Urine pH 5.5 (5.0-9.0) Urine Specific [place] 1.025 (1.001-1.035) Urine Protein Trace (Negative) Urine Ketones 1+ (Negative) Urine Blood Negative /uL (Negative) Urine Nitrite Negative (Negative) Urine Bilirubin Negative (Negative) Urine Urobilinogen Normal mg/dL (Negative) Urine Leukocyte Esterase Negative /uL (Negative) Urine RBC <1 /hpf (0 - 3) Urine Microscopic WBC 1 /HPF (0-3) Urine Squamous Epithelial Cells None seen /hpf (<5) Urine Bacteria None seen /hpf (None Seen) Urine Mucus Few (None Seen) Urine Glucose Normal mg/dL (Normal) SARS-CoV-2 Antigen (Rapid) Negative (NEGATIVE) Other Laboratory Tests 10/05/24 05:51 Brief Hx & Hospital Course: 69-year-old male with a history of hypercholesterolemia hypothyroidism chronic low back pain dementia history of [place] status post CABG with a stents lives alone suddenly developed shortness of breath in the middle of the night and [place] neighbor's door who brought him to the ER found to be in sepsis secondary to pneumonia treated with Rocephin azithromycin. Flu test negative COVID test negative placed. patient also has dementia tele psych consult advised no [id number] and to increase Aricept to fit 10 mg p.o. daily which was done. Discussed with the patient and his niece Kassie at bedside and patient being discharged to group home facility for IV antibiotics for two weeks for pneumonia. Patient is hospice revoked. Patient is also failure to thrive. 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 Hypercholesterolemia Hypothyroidism Chronic low back pain Dementia Patient lives alone Flu test negative COVID test negative Failure to thrive Discharge Disposition: Alf Facility Discharge Instruct/Medications Diet: Cardiac 2g Na,low cholest Activity: Light activity Follow Up/Referral: Follow up with the senior living Medications: Rocephin iv for two weeks for pneumonia Azithromycin IV for two weeks for pneumonia 35 (Time taken for discharge summary 35 minutes) Discharge Statement: "Patient was advised to return to the ER or call 911 if any headaches, dizziness, shortness of breath, chest pain, abdominal pain, bleeding, fevers, or worsening of medical condition. Patient was counseled about treatment plan, medications, possible side effects, patientverbalized understanding. All questions were answered to the best of my ability. 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
== END 2024-10-07 20:15 | DRG 871 ==
LOC: EDBD 03:10 → ER 03:14 → OVERFLOW 07:45 → EAST 22:19
PROVIDERS: ADMIT Family Medicine; ATTEND Family Medicine
DX: A41.9 Sepsis, unspecified organism (principal); J18.9 Pneumonia, unspecified organism; E03.9 Hypothyroidism, unspecified; E78.00 Pure hypercholesterolemia, unspecified; Z20.822 Contact with and (suspected) exposure to COVID-19; F03.90 Unspecified dementia, unspecified severity, without behavioral disturbance, psychotic disturbance, mood disturbance, and anxiety; R62.7 Adult failure to thrive; G89.4 Chronic pain syndrome; Z95.1 Presence of aortocoronary bypass graft; I25.2 Old myocardial infarction; Z68.20 Body mass index [BMI] 20.0-20.9, adult; Z79.899 Other long term (current) drug therapy
CPT/HCPCS: 36415; 71045; 80048; 80053; 81001; 83735; 84132; 84484; 85025; 87426; 87804; 93005; 94640; 96365; G0378